=== PATIENT | male | born 1960 | race Hispanic/Latino ===

== ENCOUNTER 2022-01-24 08:25 | Inpatient (IN) | payer OTHER ==
[~2022-01-24] VITALS: Ht 170.2 cm; Wt 82.1 kg
[2022-01-24] MEDS ORDERED: KETOROLAC 15MG/ML VIAL (15MG/ML) ONE (08:43)
[2022-01-24] MEDS ORDERED: ONDANSETRON 4MG INJ ONE (08:43)
[2022-01-24 08:52] LABS: BASOPHILS % (AUTO) 0.1 % (0.0-5.0); EOSINOPHILS % (AUTO) 0.1 % (0.0-8.0); HEMATOCRIT 48.5 % (42-54); LYMPHOCYTES % (AUTO) 13.4 % (21.0-51.0); MEAN CORPUSCULAR HEMOGLOBIN 30.7 pg (27.0-33.0); MEAN CORPUSCULAR HGB CONC 35.1 g/dL (32.0-36.0); MEAN CORPUSCULAR VOLUME 87.7 fL (79-99); MONOCYTES % (AUTO) 6.3 % (3.0-13.0); NEUTROPHILS % (AUTO) 79.7 % (40.0-77.0); PLATELET COUNT (AUTO) 156 K/uL (130-400); RED BLOOD CELL COUNT(AUTO) 5.53 MIL/uL (4.50-6.20); RED CELL DISTRIBUTION WIDTH 13.6 % (11.0-15.5)
[2022-01-24] MEDS ORDERED: KETOROLAC 15MG/ML VIAL (15MG/ML) IV ONE (09:00)
[2022-01-24] MEDS ORDERED: ONDANSETRON 4MG INJ IVP ONE (09:00)
[2022-01-24] MEDS ORDERED: 0.9%NACL 1000ML 1,000 ML IV ONE (09:00)
[2022-01-24] MEDS ORDERED: MORPHINE 4 MG SYG ONE (09:05)
[2022-01-24 09:10] LABS: ALBUMIN 3.5 g/dL (3.5-5.0); CREATININE 1.2 mg/dL (0.5-1.5); POTASSIUM 4.1 mmol/L (3.5-5.1); TOTAL PROTEIN, SERUM 7.4 g/dL (6.0-8.3)
[2022-01-24 09:14] LABS: APPEARANCE,URINE CLEAR (CLEAR); BILIRUBIN,URINE NEGATIVE (NEGATIVE); COLOR,URINE YELLOW (YELLOW); GLUCOSE, URINE (UA) NEGATIVE (NEGATIVE); KETONES,URINE NEGATIVE (NEGATIVE); LEUKOCYTE ESTERASE ,URINE NEGATIVE (NEGATIVE); NITRATE,URINE NEGATIVE (NEGATIVE); OCCULT BLOOD,URINE NEGATIVE (NEGATIVE); PROTEIN,URINE NEGATIVE (NEGATIVE); UROBILINOGEN,URINE 0.2 mg/dL (0.2-1.0)
[2022-01-24] MEDS ORDERED: ACETAMINOPHEN WITH CODEINE 1 TAB TAB PO PRN ×2 (10:30)
[2022-01-24] MEDS ORDERED: DiphenhydrAMINE HCL 50 MG/ML VIAL IV PRN (10:30)
[2022-01-24] MEDS ORDERED: DIPHENHYDRAMINE HCL 25 MG CAPSULE PO PRN (10:30)
[2022-01-24] MEDS ORDERED: ONDANSETRON 4MG INJ IV PRN (10:30)
[2022-01-24] MEDS ORDERED: ACETAMINOPHEN 325 MG TAB PO PRN ×2 (10:30)
[2022-01-24 10:50] LABS: INR 0.97 (0.85-1.15); PROTHROMBIN TIME 10.6 SEC (9.6-11.6)
[2022-01-24 10:51] LABS: PARTIAL THROMBOPLASTIN TIME 26.5 SEC (26.3-35.5)
[2022-01-24 11:01] LABS: HEMOGLOBIN A1C 5.7 % (4.0-6.0)
[2022-01-24 12:00] VITALS: BP 139/72
[2022-01-24] MEDS: ZOSYN 3.375GM+NS 50ML 50 ML IV SCH ×2 (12:13→21:32)
[2022-01-24 16:00] VITALS: BP 109/67
[2022-01-24 20:29] VITALS: BP 124/74
[2022-01-24] MEDS: FAMOTIDINE 20MG TAB PO SCH (21:32)
[2022-01-24 23:45] VITALS: BP 146/74
[2022-01-25 03:44] VITALS: BP 132/87
[2022-01-25] MEDS: ZOSYN 3.375GM+NS 50ML 50 ML IV SCH ×2 (04:50→13:25)
[2022-01-25 05:28] LABS: HEMATOCRIT 44.6 % (42-54); MEAN CORPUSCULAR HGB CONC 34.8 g/dL (32.0-36.0); MEAN CORPUSCULAR VOLUME 86.4 fL (79-99); RED BLOOD CELL COUNT(AUTO) 5.16 MIL/uL (4.50-6.20); RED CELL DISTRIBUTION WIDTH 13.4 % (11.0-15.5); WHITE BLOOD COUNT (AUTO) 14.5 K/uL (4.8-10.8)
[2022-01-25 05:39] LABS: POTASSIUM 3.7 mmol/L (3.5-5.1)
[2022-01-25] MEDS: FAMOTIDINE 20MG TAB PO SCH (08:46)
[2022-01-25] MEDS ORDERED: ENOXAPARIN SODIUM 40 MG/0.4 ML SYRINGE SQ SCH (09:00)
[2022-01-25] MEDS ORDERED: LACTULOSE 20 GM/30 ML UDCUP PO PRN (09:30)
[2022-01-25 11:50] VITALS: BP 132/77
== END 2022-01-25 17:45 | disposition home or self-care (01) | DRG 645 ==
LOC: EDH 08:25 → EDHIP 08:26 → 3CH 11:58
PROVIDERS: ADMIT Hospitalist; ATTEND Hospitalist
DX: E27.9 Disorder of adrenal gland, unspecified (principal); Z20.822 Contact with and (suspected) exposure to COVID-19; D72.829 Elevated white blood cell count, unspecified; R73.03 Prediabetes
CPT/HCPCS: 36415; 71045; 74176; 80048; 80053; 81003; 82948; 83036; 83690; 84145; 84443; 84484; 85025; 85027; 85610; 85730; 87635; 93005; G0378; J1650; J1885; J2270; J2405; J2543